=== PATIENT | male | born 1990 | race Caucasian/White ===

== ENCOUNTER 2017-11-23 16:14 | Emergency (ER) | payer OTHER ==
--- NOTE | 2017-11-23 16:47 | UC ---
Lower Extremity/Ankle HPI - HPI Summary HPI Summary: 27 y/o male presents to the urgent care c/o left ankle pain for the past 2 weeks. Patient reports history of plantar fasciitis in the past. Patient has been taking Motrin on and off for the past 2 weeks to alleviate pain. Pain is 4/ 10 at rest and 6/10 sharp w/ walking. Patient denies calf pain shortness of breath, chest pain numbness or tingling over the left foot, abdominal pain nausea vomiting or diarrhea. - History of Current Complaint Chief Complaint: UCLowerExtremity Stated Complaint: ANKLE PAIN Time Seen by Provider: 11/23/17 16:45 Hx Obtained From: Patient Onset/Duration: Gradual Onset, Lasting Weeks - 2 week, Worse Since - last 2 days Severity Initially: Mild Severity Currently: Moderate Pain Intensity: 4 Pain Scale Used: 0-10 Numeric Aggravating Factor(s): Ambulation Alleviating Factor(s): Rest, Elevation, Ice, OTC Meds Able to Bear Weight: Yes - Risk Factors Gout Risk Factors: Negative DVT Risk Factors: Negative Septic Arthritis Risk Factor: Negative - Allergies/Home Medications Allergies/Adverse Reactions: Allergies Allergy/AdvReac Type Severity Reaction Status Date / Time clarithromycin Allergy Rash Verified 11/23/17 16:31 Pertussis Vaccines Allergy Unknown Verified 11/23/17 16:31 Reaction Details Home Medications: Home Medications Testosterone Cypionate 200 mg INJ WEEKLY 11/23/17 [History Confirmed 11/23/17] PMH/Surg Hx/FS Hx/Imm Hx Previously Healthy: Yes Respiratory History: Asthma Other Psychological History: ADHD - Surgical History Surgical History: Yes Surgery Procedure, Year, and Place: T & A, wisdom teeth extraction,. Bilateral mastectomy 08/05/15 - Family History Known Family History: Positive: None - Pt denies FMHX - Social History Occupation: Employed Full-time Lives: With Family Alcohol Use: Occasionally Substance Use Type: None Smoking Status (MU): Former Smoker Review of Systems Constitutional: Negative Skin: Negative Eyes: Negative ENT: Negative Respiratory: Negative Cardiovascular: Negative Gastrointestinal: Negative Genitourinary: Negative Motor: Negative Neurovascular: Negative Musculoskeletal: Decreased ROM - left foot, Other: - left ankle and foot pain Neurological: Negative Psychological: Negative Is Patient Immunocompromised?: No All Other Systems Reviewed And Are Negative: Yes Physical Exam - Summary Physical Exam Summary: Vital Signs Reviewed: Yes General : well developed, well nourished male w/o any apparent distress Eyes: Positive: Conjunctiva Clear - PERRLA, EOMI ENT: Positive: Normal ENT inspection, Hearing grossly normal, Pharynx normal, TMs normal Neck: Positive: Supple, Nontender, No Lymphadenopathy Respiratory: Positive: Chest non-tender, Lungs clear, Normal breath sounds, No respiratory distress Cardiovascular: Positive: RRR, No Murmur, Pulses Normal Abdomen Description: Positive: Nontender, No Organomegaly, Soft. Negative: CVA Tenderness (R), CVA Tenderness (L) Bowel Sounds: Positive: Present Musculoskeletal: Positive: Strength Intact, ROM Intact, No Edema, Left Foot/Toes : Pt is able to bear weight but ambulate with mild limping. LF foot :No surface trauma, ecchymosis, erythema, lesions, ulcers or break in skin integrity. The L foot is without obvious asymmetry or deformity when compared to the R foot. No bony step-off, No tenderness to palpation over toes, point tenderness over the mid plantar foot and lateral aspect radiating to the left malleolus w/ mild swelling, no tenderness of hindfoot, Decrease plantar/dorsiflexion, inversion/ eversion due to pain. FROM of left ankle. Distal motor and neurovascular status are intact. Neurological Exam: Normal Psychological Exam: Normal Skin Exam: Normal Triage Information Reviewed: Yes Vital Signs: Initial Vital Signs Temp 98.3 F 11/23/17 16:17 Pulse 73 11/23/17 16:17 Resp 18 11/23/17 16:17 BP 115/83 11/23/17 16:17 Pulse Ox 99 11/23/17 16:17 Lower Extremity Course/Dx - Course Course Of Treatment: 27 y/o male presents to the urgent care c/o left ankle pain for the past 2 weeks. Patient reports history of plantar fasciitis in the past. Patient has been taking Motrin on and off for the past 2 weeks to alleviate pain. Pain is 4/10 at rest and 6/10 sharp w/ walking. Patient denies calf pain shortness of breath, chest pain numbness or tingling over the left foot, abdominal pain nausea vomiting or diarrhea.Hx obtained. Left ankle and left foot X-ray ordered:Impression:normal radiograghs of the left foot and ankle as per radiologist. Pt Probably plantar fasciitis or tendonitis. Pt's foot immobilized with narinder-bandage and given a post-op shoe to avoid flexion. Advised RICE, and Rx Naproxen PO for pain, If not improvement of symptoms to f/ u with [facility] referral in 1 week for further evaluation and treatment. Pt understood and agreed with D/C instructions - Differential Dx/Diagnosis Differential Diagnosis/HQI/PQRI: Contusion, Fracture (Closed), Sprain, Strain, Tendonitis Provider Diagnoses: 1- Acute Left foot and ankle pain. 2- Plantar Fasciitis Discharge - Sign-Out/Discharge Documenting (check all that apply): Discharge/Admit/Transfer - D/C home - Discharge Plan Condition: Stable Disposition: HOME Prescriptions: Naproxen TAB* [Naprosyn 250 mg TAB*] 250 mg PO Q8H PRN #30 tab PRN Reason: Pain Patient Education Materials: Plantar Fasciitis Exercises (GEN), Plantar Fasciitis (ED) Referrals: [facility] [Outside] - 1 Week [facility] [Provider Group] - 1 Week Additional Instructions: 1-Please take medications as directed to alleviate pain and swelling. 2-Please keep your foot immobilized with the Narinder bandage and avoid flexion w/ your foot. Avoid strenuous exercise or standing for long periods of time. elevate your foot. 3- Please f/u with your PCP or Sport medicine referral in 1 week if not improvement of symptoms for further evaluation and treatment. - Billing Disposition and Condition Condition: STABLE Disposition: Home
[2017-11-23 16:49] VITALS: BP 115/83
--- NOTE | 2017-11-23 17:19 | RAD ---
INDICATION: Medial left ankle and arch of the foot pain x2 weeks without traumatic injury. COMPARISON: None. TECHNIQUE: 3 views of the left ankle and 3 views of the left foot were obtained. FINDINGS: The well corticated bones exhibit normal alignment. Joint spaces appear maintained. No fracture is seen. IMPRESSION: NORMAL RADIOGRAPH OF THE LEFT FOOT AND ANKLE. If the patient's symptoms persist, follow-up imaging is recommended.
== END 2017-11-23 17:47 | disposition home or self-care (01) ==
LOC: EDSEX 16:14 → UCEAST 16:14
DX: M25.572 Pain in left ankle and joints of left foot (principal); M72.2 Plantar fascial fibromatosis; J45.909 Unspecified asthma, uncomplicated; F90.9 Attention-deficit hyperactivity disorder, unspecified type; Z88.1 Allergy status to other antibiotic agents; Z88.7 Allergy status to serum and vaccine; Z87.891 Personal history of nicotine dependence
CPT/HCPCS: 99212; G0463